=== PATIENT | male | born 1990 | race Caucasian/White ===

== ENCOUNTER 2022-10-03 20:24 | Inpatient (IN) | payer SELFPAY ==
[2022-10-03 20:25] VITALS: BP 135/114; PULSE 89; RESP 18; TEMP 36.9; O2SAT 100
[2022-10-03 20:26] VITALS: BP 135/114; PULSE 89; RESP 18; TEMP 36.9; O2SAT 100; BMI 23.8
--- NOTE | 2022-10-03 20:49 | EDS_ITS ---
HPI History of Present Illness Chief Complaint: ETOH Intox Detail of Chief Complaint: Alcoholic Informant: patient and family Onset/Context/Timing Onset: Month(s) Context: Gradual Onset Timing: Continuous Quality: 1/5 of Seagrams per day Location: Not applicable Current Severity: Severe Maximum Severity: Severe Worsened by: Nothing specific Relieved by: Nothing Associated Symptoms Associated Symptoms: None Narrative Narrative: Patient is a 31-year-old male who presents for alcohol detox. Patient states he drinks 1/5 of alcohol a day. Has been doing this for months. He states is interfering with his work. He drinks alone. He lives alone. He denies drug use or smoking. He has never been in a detox program. His last alcoholic beverage was approximately 20 hours ago. He denies bruising easily. He denies headache, visual, ocular auditory symptoms. He denies cardiac respiratory symptoms. Denies GI symptoms including black or maroon-colored stool. He denies blood in his urine. Prior similar symptoms: No Recent Illness/Hospitalization: No PFSH PFSH Home Medications venlafaxine 75 mg tablet 75 mg PO BID 10/03/22 [History Last Taken Unknown] Allergy/AdvReac Type Severity Reaction Status Date / Time No Known Allergies Allergy Verified 10/03/22 20:27 Surgical History no surgical history no surgical history Social History (Updated 10/03/22 @ 20:[address] Jose A Moe MD) household members: none Smoking Status: Never smoker alcohol intake: current substance use type: does not use ROS ROS ED Constitutional Constitutional ED: Denies chills, fever(s), subjective, sweats or weight loss Eyes Eyes: Denies blurry vision, change in vision or diplopia ENT ENT ED: Denies ear pain, rhinorrhea or sore throat Cardiovascular Cardiovascular: Denies chest pain, palpitations or racing heartbeat Respiratory/Chest Respiratory/Chest: Denies cough, dyspnea or dyspnea on exertion Gastrointestinal Gastrointestinal: Reports other Details: He reports his stomach feels distended ; Denies abdominal pain, diarrhea, melena, nausea or vomiting Genitourinary Genitourinary ED: Denies dysuria, hematuria or urinary frequency Musculoskeletal Musculoskeletal: Denies arthralgias, back pain, myalgias or neck pain Integumentary Denies abscess, Abrasions or rash Neurologic Neurologic: Denies headache(s), paresthesias or weakness Psychiatric Psychiatric: Denies anxiety or depression Endocrine Endocrinology: Denies cold intolerance or heat intolerance Hematologic/Lymphatic Hematologic/Lymphatic: Reports systems reviewed and no addt'l complaints, except as documented and none EXAM Physical Exam Const Vital Signs: 10/03/22 20:26 10/03/22 20:25 Temperature 98.4 F 98.4 F Temperature Source Temporal Temporal Pulse Rate 89 89 Respiratory Rate 18 18 Blood Pressure 135/114 H 135/114 H Blood Pressure Mean 121 121 Pulse Ox 100 100 Oxygen Delivery Method Room Air Room Air Positive well nourished and well developed General Appearance ED: well developed and NAD; Negative for cyanotic, diaphoretic or pallor HEENT Reports moist mucous membranes HEENT Narrative: Head is atraumatic normocephalic. Ears normal. Nares patent. Uvula midline. No deviation tongue or protrusion. There is no erythema or exudate the posterior pharynx. Eyes PERRL and EOMs intact bilaterally General Eye ED: Negative for pale conjunctiva or scleral icterus Neck no lymphadenopathy, supple and no JVD Chest Wall inspection of chest normal and palpation of chest normal Resp normal respiratory effort and clear to auscultation bilaterally Cardio regular rate, regular rhythm, S1 normal heart sound, S2 normal heart sound and no murmurs GI normal to inspection, nondistended, normoactive bowel sounds, non-tender, non- distended and no masses; Negative for hepatosplenomegaly Palpation: soft Back/Spine no CVA tenderness Back/Spine Narrative: Back looks normal Neuro oriented x3, CN's II-XII intact bilaterally and no sensory deficits noted Sensorium / Orientation: alert Motor Exam: strength 5/5 throughout Psych Psych Narrative: Flat affect. Skin no rashes or lesions noted, no wounds and skin turgor normal General Skin Exam: Negative for jaundice or pallor MDM MDM MDM Narrative Medical decision making narrative: Patient is an alcoholic. ED intact diction order set was initiated. Since patient has no symptoms or findings suggest withdrawal no treatment was initiat ed. Lab Data Attestation: I reviewed the patient's lab results. Lab results narrative: Comprehensive metabolic panel is unremarkable. Talk screen is negative. Alcohol is negative and consistent with patient not having a drink since last evening. Labs: Laboratory Results - last 24 hr 10/03/22 10/03/22 10/03/22 21:16 21:16 21:31 Sodium 137 Potassium 3.5 Chloride 101 Carbon Dioxide 29.0 Anion Gap 7 BUN 7 Creatinine 0.87 Estim Creat Clear Calc 108.98 Est GFR (MDRD) Af Amer 130 Est GFR (MDRD) Non-Af 107 BUN/Creatinine Ratio 8.1 L Glucose 91 Calcium 8.7 Total Bilirubin 0.50 AST 32 ALT 32 Alkaline Phosphatase 68 Total Protein 7.3 Albumin 4.0 Globulin 3.3 Albumin/Globulin Ratio 1.2 Urine Opiates Screen NEGATIVE Urine Methadone Screen NEGATIVE Ur Barbiturates Screen NEGATIVE Ur Phencyclidine Scrn NEGATIVE Ur Amphetamines Screen NEGATIVE MDMA (Ecstasy) Screen NEGATIVE U Benzodiazepines Scrn NEGATIVE Urine Cocaine Screen NEGATIVE U Cannabinoids Screen NEGATIVE Ur Drug Screen Comment Ethyl Alcohol < 3.0 Discharge Plan Triage Chief Complaint: ETOH Intox ED Provider: Jose A Moe Dx/Rx/DC Orders Clinical Impression: Alcoholism Prescriptions: No Action venlafaxine 75 mg tablet 75 mg PO BID Label Comments: take 1 tablet by mouth twice a day Primary Care Provider: CARLOS A WEBB Referrals: Care Physician,No Primary [Non-Staff] - Disposition Disposition: Acute Care Hospital [facility]
[2022-10-03 21:51] LABS: Alcohol, Blood (Medical)-Serum < 3.0 mg/dL
[2022-10-03 21:54] LABS: Amphetamine Urine VISTA NEGATIVE (<1000 ng/mL); Barbiturate Urine VISTA NEGATIVE (< 200 ng/mL); Benzodiazepine Urine VISTA NEGATIVE (< 200 ng/mL); Cocaine Urine VISTA NEGATIVE (< 300 ng/mL); Ecstacy Urine VISTA NEGATIVE (< 500 ng/mL); Methadone Urine VISTA NEGATIVE (< 300 ng/mL); PCP Urine VISTA NEGATIVE (< 25 ng/mL); THC Urine VISTA NEGATIVE (< 50 ng/mL); Vista UDS pH Range 6
[2022-10-03 21:55] LABS: ALB/GLOB Ratio 1.2 RATIO (0.9-2.4); AST(SGOT) 32 U/L (15-37); Alanine Aminotransfer ALT/SGPT 32 U/L (16-61); Alkaline Phosphatase 68 U/L (45-117); Anion Gap 7 (5-15); BUN 7 mg/dL (7-18); BUN/Creat Ratio 8.1 RATIO (10-20); Calcium,Total 8.7 mg/dL (8.5-10.1); Chloride 101 mmol/L (98-107); Creatinine, Serum 0.87 mg/dL (0.70-1.30); EST Glomerular Filtration Rate 107 mL/min (>60); Est Glom Filt Rate - Afr Amer 130 mL/min (>60); Estimated Creatinine Clearance 108.98 ml/min; Globulin 3.3 g/dL (2.2-4.2); Glucose 91 mg/dL (74-106); Potassium 3.5 mmol/L (3.5-5.1); Protein, Total 7.3 g/dL (6.4-8.2); Sodium Level 137 mmol/L (136-145)
[2022-10-03 22:25] VITALS: RESP 18
[2022-10-03 22:56] VITALS: BP 136/84; PULSE 86; RESP 20; TEMP 36.6
--- NOTE | 2022-10-03 22:59 | HP.PCM.HOS_ITS ---
HPI - General General Date of Admission: 10/03/22 Date of Service: 10/03/22 Chief Complaint: Desire for alcohol detoxification HPI Narrative NICK POON, is a 31 M with a significant history of anxiety disorder; and alcoholism who presents to the emergency department for help with alcoholism. Reportedly he drinks about 1/5 of whiskey per day. He has been drinking for about 3 years. Last time he drank was a day prior to presentation. He denies any withdrawal symptoms. He is concerned that he may lose his job if he does not stop drinking. [facility] Medical History Alcohol abuse Anxiety Home Medications venlafaxine 75 mg tablet 75 mg PO BID 10/03/22 [History Last Taken Unknown] Allergy/AdvReac Type Severity Reaction Status Date / Time No Known Allergies Allergy Verified 10/03/22 20:27 Family History Other Cancer Hypertension Surgical History no surgical history no surgical history Social History household members: none Smoking Status: Never smoker alcohol intake: current substance use type: does not use ROS ROS Narrative Pertinent positives and pertinent negatives as noted in HPI. All other systems were reviewed and are negative Vital Signs Vital Signs Vital Signs: 10/03/22 20:26 10/03/22 20:25 Temperature 98.4 F 98.4 F Temperature Source Temporal Temporal Pulse Rate 89 89 Respiratory Rate 18 18 Blood Pressure 135/114 H 135/114 H Blood Pressure Mean 121 121 Pulse Ox 100 100 Oxygen Delivery Method Room Air Room Air Weight Weight: 66.9 kg Body Mass Index (BMI) 23.8 Physical Exam Narrative Physical exam: General: Well-nourished, well-developed. Head: Normocephalic, atraumatic, no tenderness Eyes: Vision is grossly intact. EOMI ENT, no trauma, moist mucous membranes, no rhinorrhea Neck: Nontender, full range of motion, no spinal tenderness, deformities, step- off CVS: Regular rate and rhythm. S1-S2 present. No murmur, gallop or rub. Respiratory : clear to auscultation bilaterally, chest wall nontender, no wheezing Abdomen: Soft, nontender, nondistended, normal bowel sounds, no masses : Deferred Back: Nontender, no CVA tenderness, no midline spinal tenderness, deformities, step-offs Extremities: Nontender full range of motion, no trauma Skin: Normal color, no trauma, abrasions Neuro: Alert, oriented, cranial nerves II through XII grossly intact. Psychiatry: Normal mood. Normal affect. Not depressed. Not anxious. Results Lab / Micro Data Attestation: I reviewed the patient's lab results. Result Diagrams: 10/03/22 21:16 Labs: Laboratory Results - last 24 hr 10/03/22 21:16: Sodium 137, Potassium 3.5, Chloride 101, Carbon Dioxide 29.0, A nion Gap 7, BUN 7, Creatinine 0.87, Estim Creat Clear Calc 108.98, Est GFR (MDRD) Af Amer 130, Est GFR (MDRD) Non-Af 107, BUN/Creatinine Ratio 8.1 L, Glucose 91, Calcium 8.7, Total Bilirubin 0.50, AST 32, ALT 32, Alkaline Phosphatase 68, Total Protein 7.3, Albumin 4.0, Globulin 3.3, Albumin/Globulin Ratio 1.2 10/03/22 21:16: Ethyl Alcohol < 3.0 10/03/22 21:31: Urine Opiates Screen NEGATIVE, Urine Methadone Screen NEGATIVE, Ur Barbiturates Screen NEGATIVE, Ur Phencyclidine Scrn NEGATIVE, Ur Amphetamines Screen NEGATIVE, MDMA (Ecstasy) Screen NEGATIVE, U Benzodiazepines Scrn NEGATIVE, Urine Cocaine Screen NEGATIVE, U Cannabinoids Screen NEGATIVE, Ur Drug Screen Comment Assessment & Plan Assessment/Plan (1) Alcoholism: PLAN: Plan Alcohol dependence and desire for detoxification Toxicology was negative with ethanol level of less than 3. Patient be started on phenobarbital and other adjunctive medications: Gabapentin as needed; dicyclomine as needed; Vistaril as needed; Imodium as needed; trazodone as needed; Zofran as needed; scheduled thiamine; and schedule folic acid. Monitor CIWA score DVT prophylaxis Low risk Encourage to ambulate Charges/Coding Visit Charges Inpatient E&M: 96736 Init Hosp L2
[2022-10-04 00:32] VITALS: BP 135/96; PULSE 77; RESP 18; TEMP 36.4; O2SAT 98
[2022-10-04 00:37] VITALS: BMI 23.7
[2022-10-04] MEDS: Phenobarbital 32.4 MG Tablet 64.8 MG PO ×6 (00:54→19:51)
[2022-10-04] MEDS: Venlafaxine HCl 75 MG Tablet PO ×3 (00:54→23:35)
[2022-10-04 04:56] VITALS: BP 142/97; PULSE 77; RESP 16; TEMP 36.4; O2SAT 100
[2022-10-04 08:47] VITALS: BP 124/85; PULSE 78; RESP 16; TEMP 36.9; O2SAT 100
[2022-10-04] MEDS: Folic Acid 1 MG Tablet PO (08:50)
[2022-10-04] MEDS: Thiamine Hydrochloride 100 MG Tablet PO (08:50)
[2022-10-04 12:42] VITALS: BP 136/95; PULSE 76; RESP 16; TEMP 36.8; O2SAT 100
--- NOTE | 2022-10-04 14:57 | PN.HOSP_ITS ---
Subjective Subjective Follow-up for acute alcohol withdrawal syndrome. Objective Data Objective Data Vital Signs: Vital Signs Temp Pulse Resp BP Pulse Ox O2 Del Method 98.3 F 76 16 136/95 H 100 Room Air 10/04/22 12:42 10/04/22 12:42 10/04/22 12:42 10/04/22 12:42 10/04/22 12:42 10/04/22 12:42 Oxygen Delivery Method Room Air Weight: 147 lb 7.828 oz Body Mass Index (BMI) 23.7 Intake & Output: Intake and Output for Last 24 Hours 10/02/22 10/03/22 10/04/22 23:59 23:59 23:59 Intake Total 1130 / 1130 Balance 1130 / 1130 Lab / Micro Data Result Diagrams: 10/03/22 21:16 Labs: Laboratory Results - last 24 hr 10/03/22 21:16: Sodium 137, Potassium 3.5, Chloride 101, Carbon Dioxide 29.0, Anion Gap 7, BUN 7, Creatinine 0.87, Estim Creat Clear Calc 108.98, Est GFR (M DRD) Af Amer 130, Est GFR (MDRD) Non-Af 107, BUN/Creatinine Ratio 8.1 L, Glucose 91, Calcium 8.7, Total Bilirubin 0.50, AST 32, ALT 32, Alkaline Phosphatase 68, Total Protein 7.3, Albumin 4.0, Globulin 3.3, Albumin/Globulin Ratio 1.2 10/03/22 21:16: Ethyl Alcohol < 3.0 10/03/22 21:31: Urine Opiates Screen NEGATIVE, Urine Methadone Screen NEGATIVE, Ur Barbiturates Screen NEGATIVE, Ur Phencyclidine Scrn NEGATIVE, Ur Amphetamines Screen NEGATIVE, MDMA (Ecstasy) Screen NEGATIVE, U Benzodiazepines Scrn NEGATIVE, Urine Cocaine Screen NEGATIVE, U Cannabinoids Screen NEGATIVE, Ur Drug Screen Comment Physical Exam Narrative Seen and examined Patient drinks 1 big bottle of hard liquor daily. Probably 2 pints daily. Denies hallucination, delusion or seizure disorder. Denies stigmata of chronic liver disease including hematemesis melena or encephalopathy in the past. Physical exam General: Alert, Oriented x3, Cooperative HEENT: Atraumatic, PERRLA, EOMI, Normocephalic Oral: No Gingival or Mucosal Lesions/ Ulcerations Neck: Supple, No JVD, Negative Carotid Bruits Lungs: Air entry equal in bilateral lung bases. No crepitation/rhonchi Cardiovascular: Regular rate, Regular Rhythm, Normal S1, Normal S2, No murmurs Abdomen: Bowel Sounds Present, Soft, Non Tender, Non-Distended : No renal angle tenderness. No suprapubic tenderness. Extremities: No edema, Capillary Refill Less than 3 Seconds Skin: No rashes, No breakdown Musculoskeletal: No Tenderness to Palpation of Joints or Extremities Neurological: Cranial nerves II-XII grossly intact, DTR 2+/4 and Symmetrical, Neuro grossly intact Psych/Mental Status: Flat affect Assessment & Plan Assessment/Plan (1) Alcoholism: PLAN: Plan This 31-year-old gentleman being admitted for acute alcohol withdrawal syndrome with history of chronic alcohol use. 1. Acute alcohol withdrawal syndrome with history of chronic alcohol use disorder with dependence and tolerance: Patient is admitted on MedSurg floor. Liver chemistry normal limit. A/G ratio 1.2. Serum potassium 3.5. Check serum magnesium and phosphorus and replace accordingly. Serum alcohol less than 3. U tox was negative. Alcohol dependence and desire for detoxification Patient be started on phenobarbital and other adjunctive medications: Gabapentin as needed; dicyclomine as needed; Vistaril as needed; Imodium as needed; trazodone as needed; Zofran as needed; scheduled thiamine; and schedule folic acid. Monitor CIWA score Denies chronic liver disease or cirrhosis. DVT prophylaxis Low risk Encourage to ambulate Charges/Coding Visit Charges Inpatient E&M: 31179 Subs Hosp L2
--- NOTE | 2022-10-04 15:13 | ADDICTION ---
This technical document writer met with PT to conduct ASAM, MSE, AUDIT assessments and to plan for d/c. PT A+Ox4 and participated actively. All assessments completed and placed in PT's chart. PT plans to f/u with [facility] in [place] for follow-up outpatient treatment services. PT did not indicate a need for transportation post d/c from [facility].
[2022-10-04 15:37] VITALS: BP 126/90; PULSE 77; RESP 16; TEMP 37.1; O2SAT 99
[2022-10-04 19:47] VITALS: BP 134/94; PULSE 81; RESP 18; TEMP 36.4; O2SAT 99
[2022-10-05] MEDS: Phenobarbital 32.4 MG Tablet 64.8 MG PO ×6 (00:54→20:50)
[2022-10-05 02:39] VITALS: BP 128/92; PULSE 92; RESP 16; TEMP 36.8; O2SAT 100
[2022-10-05] MEDS: Folic Acid 1 MG Tablet PO (08:23)
[2022-10-05] MEDS: Thiamine Hydrochloride 100 MG Tablet PO (08:23)
[2022-10-05 09:00] VITALS: BP 115/74; PULSE 75; RESP 16; TEMP 36.6; O2SAT 97
[2022-10-05] MEDS: Venlafaxine HCl 75 MG Tablet PO (11:26)
--- NOTE | 2022-10-05 11:54 | PCM.PN.HOSP ---
Subjective Subjective Follow-up for acute alcohol withdrawal syndrome. Objective Data Objective Data Vital Signs: Vital Signs Temp Pulse Resp BP Pulse Ox O2 Del Method 98 F 75 16 115/74 97 Room Air 10/05/22 09:00 10/05/22 09:00 10/05/22 09:00 10/05/22 09:00 10/05/22 09:00 10/05/22 09:00 Oxygen Delivery Method Room Air Weight: 147 lb 7.828 oz Body Mass Index (BMI) 23.7 Intake & Output: Intake and Output for Last 24 Hours 10/03/22 10/04/22 10/05/22 23:59 23:59 23:59 Intake Total 1580 / 2029 950 / 950 Balance 1580 / 2029 950 / 950 Lab / Micro Data Result Diagrams: 10/03/22 21:16 Physical Exam Narrative Seen and examined No tremor. Physical exam General: Alert, Oriented x3, Cooperative HEENT: Atraumatic, PERRLA, EOMI, Normocephalic Oral: No Gingival or Mucosal Lesions/ Ulcerations Neck: Supple, No JVD, Negative Carotid Bruits Lungs: Air entry equal in bilateral lung bases. No crepitation/rhonchi Cardiovascular: Regular rate, Regular Rhythm, Normal S1, Normal S2, No murmurs Abdomen: Bowel Sounds Present, Soft, Non Tender, Non-Distended : No renal angle tenderness. No suprapubic tenderness. Extremities: No edema, Capillary Refill Less than 3 Seconds Skin: No rashes, No breakdown Musculoskeletal: No Tenderness to Palpation of Joints or Extremities Neurological: Cranial nerves II-XII grossly intact, DTR 2+/4 and Symmetrical, Neuro grossly intact Psych/Mental Status: Flat affect Assessment & Plan Assessment/Plan (1) Alcoholism: PLAN: Plan This 31-year-old gentleman being admitted for acute alcohol withdrawal syndrome with history of chronic alcohol use. Patient drinks 1 big bottle of hard liquor daily. Probably 2 pints daily. 1. Acute alcohol withdrawal syndrome with history of chronic alcohol use disorder with dependence and tolerance: Patient is admitted on MedSurg floor. Liver chemistry normal limit. A/G ratio 1.2. Serum potassium 3.5. Check serum magnesium and phosphorus and replace accordingly. Serum alcohol less than 3. U tox was negative. Alcohol dependence and desire for detoxification Patient be started on phenobarbital and other adjunctive medications: Gabapentin as needed; dicyclomine as needed; Vistaril as needed; Imodium as needed; trazodone as needed; Zofran as needed; scheduled thiamine; and schedule folic acid. Monitor CIWA score Denies chronic liver disease or cirrhosis. 10/05: Denies hallucination, delusion or seizure disorder. Denies stigmata of chronic liver disease including hematemesis or melena or encephalopathy in the past. Never had EGD. DVT prophylaxis Low risk Encourage to ambulate Charges/Coding Visit Charges Inpatient E&M: 59118 Subs Hosp L2
--- NOTE | 2022-10-05 11:59 | CASEMGMT ---
Addendum entered by Flower Munoz 10/05/22 13:26: SW noticed pt from [place], [place]. Medicaid application was faxed to [facility] at this time. Addendum entered by Flower Munoz 10/05/22 13:22: SW received Medicaid application. Reviewed for completion and noticed some young information missing. SW went in to go over rachael with pt and pt was willing to finish missing information. SW faxed application to [facility]. Original Note: Social Work SW in to met with pt for self pay resources. SW discussed medicaid application with pt and explained the process. SW informed pt to complete rachael to best of ability and to return to SW or nurse so the application can be returned to [facility]. Pt voiced understanding and appeared interested/agreeable to completing the application. FAUSTINO also provided pt with the [facility] card, which has [employer] information, as pt is here for [facility]. Bibiana Sylvester, drilling field specialist, updated of medicaid rachael being provided to pt. Bibiana is working to get inpatient treatment for pt, should pt chose it. BARNEY Smith
[2022-10-05 15:23] VITALS: BP 110/89; PULSE 75; RESP 16; TEMP 36.7; O2SAT 99
[2022-10-05 20:00] VITALS: BP 102/74; PULSE 89; RESP 16; TEMP 36.4; O2SAT 100
[2022-10-06] MEDS: Phenobarbital 32.4 MG Tablet 64.8 MG PO ×3 (00:50→08:06)
[2022-10-06] MEDS: Venlafaxine HCl 75 MG Tablet PO (00:50)
[2022-10-06 02:00] VITALS: BP 110/86; PULSE 75; RESP 16; TEMP 36.6; O2SAT 100
[2022-10-06 07:53] VITALS: BP 104/77; PULSE 75; RESP 16; TEMP 36.4; O2SAT 100
[2022-10-06] MEDS: Thiamine Hydrochloride 100 MG Tablet PO (08:07)
[2022-10-06] MEDS: Folic Acid 1 MG Tablet PO (08:07)
--- NOTE | 2022-10-06 09:55 | DCINST_ITS ---
Discharge Instructions Diet Discharge Diet: No restrictions Activity Discharge Activity: Return to Normal Activity Weight Bearing Status: Weight bearing as tolerated Dressing / Incision Call your doctor if you observe: Fever of 101 or Higher, Coldness, Increased Pain, Numbness or Tingling, Change in Color, Inability to urinate, Inability to have a bowel movement, Shortness of breath, Dizziness, Fainting spells, Swelling in the ankles, Chest pain, Prolonged hiccupping, Increased palpitations (irregular heartbeat), Calf discomfort and Uncontrolled pain Follow Up Care Test Results: Test results from this visit will be discussed in further detail at your follow- up appointment, if applicable. Discharge Plan Admission Admit Date/Time: 10/03/22 22:56 Primary Reason for Your Visit: Acute alcohol withdrawal syndrome Attending Provider: Navin Sosa Primary Care Provider: CARLOS A WEBB Consulting Providers: Tino Rodgers Discharge Orders/Prescriptions Prescriptions: New thiamine HCl (vitamin B1) [Vitamin B-1] 100 mg Tablet 100 mg PO DAILYCM Qty: 30 2RF folic acid 1 mg Tablet 1 mg PO DAILY@0800 Qty: 30 2RF Continued venlafaxine 75 mg tablet 75 mg PO BID Label Comments: take 1 tablet by mouth twice a day Referrals / Follow Up: CARLOS A WEBB [Other] Care Physician,No Primary [Non-Staff] - Disposition Disposition (needs filled in before D/C Order can be placed): Home, Self Care
--- NOTE | 2022-10-06 09:59 | PCM.DC.SUM ---
Providers Date of Admission: 10/03/22 Primary Care Physician: CARLOS A WEBB Reason For Visit: DESIRE FOR DETOXIFICATION Diagnosis Discharge Diagnosis (1) Alcoholism: Status: Acute Code(s): F10.20 - Alcohol dependence, uncomplicated Medications at Discharge Home Medications venlafaxine 75 mg tablet 75 mg PO BID 10/03/22 folic acid 1 mg tablet 1 mg PO DAILY@0800 #30 tabs 10/06/22 thiamine HCl (vitamin B1) 100 mg tablet (Vitamin B-1) 100 mg PO DAILYCM #30 tabs 10/06/22 Hospital Course Summary of Care Provided Hospital Course: This 31-year-old gentleman being admitted for acute alcohol withdrawal syndrome with history of chronic alcohol use. Patient drinks 1 big bottle of hard liquor daily. Probably 2 pints daily. 1. Acute alcohol withdrawal syndrome with history of chronic alcohol use disorder with dependence and tolerance: Patient is admitted on MedSur floor. Liver chemistry normal limit. A/G ratio 1.2. Serum potassium 3.5. Check serum magnesium and phosphorus and replace accordingly. Serum alcohol less than 3. U tox was negative. Alcohol dependence and desire for detoxification Patient be started on phenobarbital and other adjunctive medications: Gabapentin as needed; dicyclomine as needed; Vistaril as needed; Imodium as needed; trazodone as needed; Zofran as needed; scheduled thiamine; and schedule folic acid. Monitor CIWA score Denies chronic liver disease or cirrhosis. 10/05: Denies hallucination, delusion or seizure disorder. Denies stigmata of chronic liver disease including hematemesis or melena or encephalopathy in the past. Never had EGD. 10/06: Patient CIWA scale is 0. Patient does not have significant noticeable alcohol withdrawal symptoms. Patient was seen by Len, continuous pillowcase cutter and she was given phone number and follow-up plan for outpatient rehab. DVT prophylaxis Low risk Encourage to ambulate Discharge medication reconciliation done. Discharge follow-up instructions completed. Discharge process discussed with the patient and all questions were answered to patient's satisfaction. Total time spent, exact 35 minutes on discharge meds reconciliation, examination, coordination of care with nurses and ancillary staff, review of imaging and blood test and discussion with the patient on follow-up instructions. Physical Exam Narrative Seen and examined No tremor. Physical exam General: Alert, Oriented x3, Cooperative HEENT: Atraumatic, PERRLA, EOMI, Normocephalic Oral: No Gingival or Mucosal Lesions/ Ulcerations Neck: Supple, No JVD, Negative Carotid Bruits Lungs: Air entry equal in bilateral lung bases. No crepitation/rhonchi Cardiovascular: Regular rate, Regular Rhythm, Normal S1, Normal S2, No murmurs Abdomen: Bowel Sounds Present, Soft, Non Tender, Non-Distended : No renal angle tenderness. No suprapubic tenderness. Extremities: No edema, Capillary Refill Less than 3 Seconds Skin: No rashes, No breakdown Musculoskeletal: No Tenderness to Palpation of Joints or Extremities Neurological: Cranial nerves II-XII grossly intact, DTR 2+/4 and Symmetrical, Neuro grossly intact Psych/Mental Status: Flat affect Weight / BMI Weight Weight: 147 lb 7.828 oz Body Mass Index (BMI) 23.7 ABG / Lab / Microbiology Data Result Diagrams: 10/03/22 21:16 D/C Instructions Discharge Diet: No restrictions Weight Bearing Status: Weight bearing as tolerated Call your doctor if you observe: Fever of 101 or Higher, Coldness, Increased Pain, Numbness or Tingling, Change in Color, Inability to urinate, Inability to have a bowel movement, Shortness of breath, Dizziness, Fainting spells, Swelling in the ankles, Chest pain, Prolonged hiccupping, Increased palpitations (irregular heartbeat), Calf discomfort and Uncontrolled pain Meaningful Use Info Meaningful Use Diagnoses (Choose all that apply): None applicable Discharge Plan Admission Admit Date/Time: 10/03/22 22:56 Primary Reason for Your Visit: Acute alcohol withdrawal syndrome Attending Provider: Navin Sosa Primary Care Provider: CARLOS A WEBB Consulting Providers: Tino Rodgers Discharge Orders/Prescriptions Prescriptions: New thiamine HCl (vitamin B1) [Vitamin B-1] 100 mg Tablet 100 mg PO DAILYCM Qty: 30 2RF folic acid 1 mg Tablet 1 mg PO DAILY@0800 Qty: 30 2RF Continued venlafaxine 75 mg tablet 75 mg PO BID Label Comments: take 1 tablet by mouth twice a day Referrals / Follow Up: CARLOS A WEBB [Other] - Within 2 Weeks Care Physician,No Primary [Non-Staff] - Disposition Disposition (needs filled in before D/C Order can be placed): Home, Self Care Charges/Coding Visit Charges Inpatient E&M: 96703 Disch Hosp
== END 2022-10-06 10:43 | disposition home or self-care (01) | DRG 897 ==
LOC: ED 22:02 → MS3 23:19
PROVIDERS: Admitting Provider Hospitalist; Emergency Provider Emergency Medicine; Visit Provider Internal Medicine
DX: F10.239 Alcohol dependence with withdrawal, unspecified (principal); F41.9 Anxiety disorder, unspecified; Z79.899 Other long term (current) drug therapy
CPT/HCPCS: 80053; 80307; 82077; 99283; A4216